=== PATIENT | male | born 1980 | race African-American/Black ===

== ENCOUNTER 2016-09-23 15:37 | Emergency (ER) | payer OTHER ==
[~2016-09-23] VITALS: Ht 175.3 cm; Wt 68.3 kg
[~2016-09-23 15:37] MED LIST: FLEXERIL5 MG PO; LEVAQUIN500 MG PO; NAPROSYN500 MG PO; TRAMADOL HCL50 MG PO
[2016-09-23 17:16] VITALS: BP 138/69
== END 2016-09-23 17:17 | disposition home or self-care (01) ==
LOC: EXP 15:37 → EME 15:37 → EXP 17:17
DX: S09.90XA Unspecified injury of head, initial encounter (principal); V49.50XA Passenger injured in collision with unspecified motor vehicles in traffic accident, initial encounter
CPT/HCPCS: 70450; 99281; 99283

== ENCOUNTER 2016-09-26 11:32 | Emergency (ER) | payer OTHER ==
[~2016-09-26] VITALS: Ht 175.3 cm; Wt 68.0 kg
[2016-09-26 12:43] VITALS: BP 136/85
== END 2016-09-26 12:44 | disposition home or self-care (01) ==
LOC: EME 11:32
DX: S06.0X0D Concussion without loss of consciousness, subsequent encounter (principal); Z72.0 Tobacco use
CPT/HCPCS: 99281; 99283

== ENCOUNTER 2016-10-11 20:28 | Emergency (ER) | payer SELFPAY ==
[~2016-10-11] VITALS: Ht 175.3 cm; Wt 66.1 kg
[2016-10-11 21:11] LABS: HEMATOCRIT 49.5 % (38.0-50.0); MCH 25.9 PG (29.0-34.0); MCHC 31.7 G/DL (30.0-36.0); MCV 81.7 FL (86-99); RBC DIS.WIDTH-CV 13.5 % (11.8-14.6); RBC DIS.WIDTH-SD 39.8 % (39-53); RED BLOOD COUNT 6.06 M/uL (4.00-5.50); WHITE BLOOD COUNT 4.9 K/uL (4.1-10.2)
[2016-10-11 21:40] LABS: TROP-I INTERPRETATION NEGATIVE; TROPONIN-I 0.02 ng/mL (0.0-0.30)
[2016-10-11 21:50] LABS: CHLORIDE 103 mEq/L (99-109); POTASSIUM 3.8 mEq/L (3.7-5.4); SODIUM 137 mEq/L (136-147)
[2016-10-11 21:51] LABS: GLUCOSE 81 mg/dL (70-99)
[2016-10-11 21:53] LABS: ANION GAP 11 MEQ/L (2-14)
[2016-10-11 21:55] LABS: GFR ESTIMATE (CALCULATED) > 59 mL/min/
[2016-10-11 21:56] LABS: UREA NITROGEN (BUN) 13 mg/dL (9-23)
[2016-10-11 22:09] LABS: MEAN PLAT.VOLUME 11.5 uM^3 (9.0-12.4); PLATELET COUNT 200 K/uL (156-360)
[2016-10-11 22:22] LABS: TOTAL BILIRUBIN 0.3 mg/dL (0.0-1.0)
[2016-10-11 22:23] LABS: ALKALINE PHOSPHATASE 60 IU/L (3-129)
[2016-10-11 22:26] LABS: DIRECT BILIRUBIN 0.1 mg/dL (0.0-0.3)
[2016-10-11 22:27] LABS: LIPASE 25 U/L (1.0-51.0)
[2016-10-11 22:50] LABS: INFLUENZA A VIRAL ANTIGEN NEGATIVE; INFLUENZA B VIRAL ANTIGEN POSITIVE
[2016-10-12] MEDS ORDERED: TRAMADOL HCL50 MG PO (00:20)
[2016-10-12] MEDS ORDERED: PROMETHAZINE HC25 M1 PO (00:20)
[2016-10-12] MEDS ORDERED: NAPROSYN500 MG PO (00:20)
[2016-10-12 00:56] VITALS: BP 110/72
== END 2016-10-12 00:57 | disposition home or self-care (01) ==
LOC: EME 20:28
PROVIDERS: Emergency Medicine
DX: J10.1 Influenza due to other identified influenza virus with other respiratory manifestations (principal); R51 Headache; F07.81 Postconcussional syndrome; M79.1 Myalgia; R11.2 Nausea with vomiting, unspecified; F17.200 Nicotine dependence, unspecified, uncomplicated
CPT/HCPCS: 70450; 71020; 80048; 80076; 83690; 84484; 85027; 87502; 93005; 99281; 99285; J2270; J2405; J2765; J7030

== ENCOUNTER 2017-09-14 16:26 | Emergency (ER) | payer SELFPAY ==
[~2017-09-14] VITALS: Ht 175.3 cm; Wt 65.0 kg
[~2017-09-14 16:26] MED LIST changes: +PROMETHAZINE HC25 M1 PO
[2017-09-14] MEDS ORDERED: AMOXICILLIN875 MG PO (18:56)
[2017-09-14] MEDS ORDERED: MOTRIN600 MG PO (18:56)
[2017-09-14] MEDS ORDERED: NORCO 5/3251 TABLET PO (18:56)
[2017-09-14 19:04] VITALS: BP 144/98
== END 2017-09-14 19:05 | disposition home or self-care (01) ==
LOC: EME 16:26
PROC: 0C96XZZ Drainage of Lower Gingiva, External Approach (ICD-10-PCS; principal; 2017-09-14)
DX: K04.7 Periapical abscess without sinus (principal); K03.81 Cracked tooth
CPT/HCPCS: 99281; 99283

== ENCOUNTER 2017-11-14 12:16 | Emergency (ER) | payer OTHER ==
[~2017-11-14] VITALS: Ht 175.3 cm; Wt 66.0 kg
[~2017-11-14 12:16] MED LIST changes: +AMOXICILLIN875 MG PO; +MOTRIN600 MG PO; +NORCO 5/3251 TABLET PO
[2017-11-14] MEDS ORDERED: MOTRIN600 MG PO (13:33)
[2017-11-14 13:51] VITALS: BP 109/60
== END 2017-11-14 13:52 | disposition home or self-care (01) ==
LOC: EME 12:16
DX: M25.562 Pain in left knee (principal)
CPT/HCPCS: 73564; 99281; 99284

== ENCOUNTER 2018-03-05 18:38 | Inpatient (IN) | payer OTHER ==
[~2018-03-05] VITALS: Ht 175.3 cm; Wt 60.3 kg
[2018-03-05 19:48] LABS: CHLORIDE 105 mEq/L (99-109); POTASSIUM 3.9 mEq/L (3.7-5.4); SODIUM 139 mEq/L (136-147)
[2018-03-05 19:49] LABS: HEMATOCRIT 37.3 % (38.0-50.0); HEMOGLOBIN 12.2 G/DL (12.5-16.6); MCH 26.9 PG (29.0-34.0); MCHC 32.7 G/DL (30.0-36.0); MCV 82.3 FL (86-99); RBC DIS.WIDTH-CV 14.4 % (11.8-14.6); RBC DIS.WIDTH-SD 43.2 % (39-53); RED BLOOD COUNT 4.53 M/uL (4.00-5.50); WHITE BLOOD COUNT 5.4 K/uL (4.1-10.2)
[2018-03-05 19:50] LABS: GLUCOSE 82 mg/dL (70-99)
[2018-03-05 19:53] LABS: SERUM ETHYL ALCOHOL < 10 mg/dL
[2018-03-05 19:54] LABS: CREATININE 0.8 mg/dL (0.6-1.3); GFR ESTIMATE (CALCULATED) > 59 mL/min/ (58.99-99999)
[2018-03-05 19:56] LABS: UREA NITROGEN (BUN) 12 mg/dL (9-23)
[2018-03-05 19:57] LABS: SALICYLATE < 5.0 MG/DL (15-30)
[2018-03-05 19:58] LABS: ACETAMINOPHEN (TYLENOL) < 10 mcg/mL (10-30)
[2018-03-05 20:24] LABS: PLATELET COUNT 175 K/uL (156-360)
[2018-03-05 20:25] LABS: PLAT.SUFFICIENCY DECREASED
[2018-03-05 21:04] LABS: ALBUMIN 4.3 g/dL (3.2-4.8)
[2018-03-05 21:07] LABS: TOTAL PROTEIN 6.9 g/dL (6.4-8.3)
[2018-03-05 21:08] LABS: TOTAL BILIRUBIN 0.6 mg/dL (0.0-1.0)
[2018-03-05 21:09] LABS: ALKALINE PHOSPHATASE 44 IU/L (3-129)
[2018-03-05 21:12] LABS: AST (GOT) 15 IU/L (2-34); DIRECT BILIRUBIN 0.2 mg/dL (0.0-0.3)
[2018-03-05 21:13] LABS: ALT (GPT) 8 IU/L (3-49)
[2018-03-05 23:06] LABS: AMPHETAMINE NEGATIVE (500 ng/mL); BARBITURATES NEGATIVE (200 ng/mL); BENZODIAZEPINES PRESUMPTIVE POSITIVE (150 ng/mL); BUPRENORPHINE NEGATIVE (10 ng/mL); COCAINE NEGATIVE (150 ng/mL); METHADONE NEGATIVE (200 ng/mL); METHAMPHETAMINE NEGATIVE (500 ng/mL); OPIATES (MORPHINE) NEGATIVE (100 ng/mL); OXYCODONE PRESUMPTIVE POSITIVE (100 ng/mL); PHENCYCLIDINE NEGATIVE (25 ng/mL); PROPOXYPHENE NEGATIVE (300 ng/mL); THC CANNABINOIDS PRESUMPTIVE POSITIVE (50 ng/mL); TRICYCLIC ANTIDEPRESSANTS NEGATIVE (300 ng/mL)
[2018-03-05 23:53] LABS: BENZODIAZEPINES, URINE SCREEN Negative (200 ng/mL)
[2018-03-06 07:40] LABS: APPEARANCE CLEAR ((CLEAR)); BILIRUBIN NEGATIVE; BLOOD NEGATIVE; COLOR YELLOW ((YELLOW)); GLUCOSE (STRIP) NEGATIVE; KETONES NEGATIVE; LEUKOCYTES NEGATIVE; NITRITE NEGATIVE; PROTEIN (STRIP) NEGATIVE; SPECIFIC GRAVITY 1.021 (1.000-1.030); UROBILINOGEN 0.2 MG/DL (0.2-1.0)
[2018-03-06 16:13] VITALS: BP 121/78
[2018-03-07 07:56] VITALS: BP 96/54
== END 2018-03-07 14:00 | disposition home or self-care (01) | DRG 881 ==
LOC: EME 18:38 → 1WEST 03-06 14:18 → EDOF 03-06 14:18 → ENRESERV 03-06 14:56 → 1WEST 03-06 15:31
PROVIDERS: Emergency Medicine
DX: F43.21 Adjustment disorder with depressed mood (principal); Z91.5 Personal history of self-harm
CPT/HCPCS: 80048; 80076; 81003; 84999; 85027; 90837; 97150 GO; 97165 GO; 99281; 99285; G0480; J1630; J2060